=== PATIENT | female | born 1955 | race Caucasian/White ===

== ENCOUNTER → 2017-05-08 | Outpatient (CLI) | payer BC ==
[2014-11-06 14:30] VITALS: BP 126/78
[~2017-05-08] MED LIST: ALPR0.5T PO; HYDR-2762 PO; OLME20TA19 PO
--- NOTE | 2017-05-08 16:03 | KCIC ---
Renal ultrasound with Doppler History: Uncontrolled hypertension. Technique: Sonographic imaging of both kidneys, including color Doppler and duplex analysis. Velocity measurements are in centimeters per second. Findings: Aortic peak systolic velocity: 111 Right renal artery peak systolic velocity: Mid right renal artery not visualized. 84 distally and 117 proximally. Right RI: 0.59-0.80 Left renal artery peak systolic velocity: 116 through 158 Left RI: 0.65 through 0.83 Aorta: Patent, without evidence of aneurysm.. Right kidney measures 8.4 cm. Hyperechoic nodule in the upper pole measures 7 mm. Left kidney measures 10.3 cm. No evidence of hydronephrosis, shadowing calculus or renal lesion. Urinary bladder: Not evaluated. Impression: 1. Renal artery velocities do not suggest a hemodynamically significant stenosis. Consider CT angiography for further evaluation if indicated. 2. Small or atrophic right kidney. 3. Hyperechoic nodule in the upper pole the right kidney. This may represent a small angiomyolipoma. However, recommend further workup, such as with multiphase CT scan MRI scan or follow-up ultrasound. Electronically signed by: Shant Garrett MD (05/08/2017 4:00 PM) [facility]
== END | disposition home or self-care (01) ==
LOC: KCIC US 14:26
PROVIDERS: ATTEND Nurse Practitioner
DX: I10 Essential (primary) hypertension (principal); N26.1 Atrophy of kidney (terminal)
CPT/HCPCS: 93975

== ENCOUNTER → 2017-05-31 | Outpatient (CLI) | payer BC ==
[2014-11-06 14:30] VITALS: BP 126/78
[~2017-05-31] MED LIST changes: +CONTRAST GIVEN MC PRN; +IOHEXOL 300 MG/ML 10ML VIAL. IV ONE
--- NOTE | 2017-05-31 12:16 | KCIC ---
CT Abdomen Without And With Intravenous Contrast History: Right renal nodule. Comparison: Ultrasound renal May 08, 2017. Technique: Initially, noncontrast CT of the abdomen was performed. After intravenous contrast administration, 89 mL Omnipaque-300, repeat CT of the abdomen was performed in early nephrographic phase. Delayed excretory phase CT of the abdomen was also obtained. Axial, sagittal, and coronal reconstructions were obtained. Exposure: One or more of the following individualized dose reduction techniques were utilized for this examination: 1. Automated exposure control 2. Adjustment of the mA and/or kV according to patient size 3. Use of iterative reconstruction technique Findings: Noncontrast images demonstrate no evidence of urinary stone. The right kidney is mildly malrotated with the long axis rotated more laterally than is typical. The right kidney also demonstrates areas of the cortical thinning. The junction of the superior pole and interpolar region of the right kidney demonstrates 6 mm fat-containing lesion, compatible with small angiomyolipoma. Postcontrast images demonstrate no evidence of soft tissue appearing renal mass involving either kidney. Bilateral kidneys enhance and excrete symmetrically. The right hepatic lobe demonstrates subcentimeter low-attenuation lesion, too small to characterize on this examination. Spleen and pancreas are unremarkable. Gallbladder and bilateral adrenal glands are unremarkable. No bowel obstruction is seen. Impression: 1. 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 2. Malrotated and dysmorphic right kidney. Electronically signed by: Shant Machado MD (05/31/2017 12:12 PM) [facility]
== END | disposition home or self-care (01) ==
LOC: KCIC CT 10:31
PROVIDERS: ATTEND Nurse Practitioner
DX: D17.71 Benign lipomatous neoplasm of kidney (principal)
CPT/HCPCS: 74170; Q9967

== ENCOUNTER → 2018-06-24 | Outpatient (CLI) | payer OTHER ==
[2014-11-06 14:30] VITALS: BP 126/78
[~2018-06-24] MED LIST changes: -CONTRAST GIVEN MC PRN; -IOHEXOL 300 MG/ML 10ML VIAL. IV ONE; +OLME20TA17 PO; -OLME20TA19 PO
--- NOTE | 2018-06-24 15:26 | RAD ---
Three-view thoracic spine series Clinical indications: Upper back pain for several years. COMPARISON: None available. FINDINGS: No acute compression fracture is evident. No discitis or osteolytic process is seen. IMPRESSION: No acute compression fracture. Electronically signed by: Yury Smith MD (06/24/2018 3:22 PM) [id number]
== END | disposition home or self-care (01) ==
LOC: RAD 09:26
PROVIDERS: ATTEND Surgery
DX: M54.6 Pain in thoracic spine (principal); I10 Essential (primary) hypertension
CPT/HCPCS: 72072

== ENCOUNTER 2019-08-05 08:19 | Emergency (ER) | payer OTHER ==
[~2019-08-05] VITALS: Ht 170.2 cm; Wt 64.9 kg
[~2019-08-05 08:19] MED LIST changes: -HYDR-2762 PO; +HYDR-2765 PO
[2019-08-05] MEDS ORDERED: FLUORESCEIN OPHTH TEST STRIP. ONE (08:56)
[2019-08-05] MEDS ORDERED: TETRACAINE 0.5% OPHTH SOLUTION 4ML BOTTLE. ONE (08:56)
[2019-08-05] MEDS ORDERED: FLUORESCEIN OPHTH TEST STRIP. OD ONE (09:00)
[2019-08-05] MEDS ORDERED: VALA10005 PO (09:00)
[2019-08-05] MEDS ORDERED: PRED20TA PO (09:00)
[2019-08-05] MEDS ORDERED: oxyCODONE/APAP 5/325 1 TAB TABLET PO ONE (09:00)
[2019-08-05] MEDS ORDERED: OXYC1TAB15 PO (09:00)
--- NOTE | 2019-08-05 09:00 | PHYS DOC ---
Past Medical History Past Medical History: Anxiety, Hypertension, Other Additional Past Medical Histor: CHRONIC BACK PAIN Past Surgical History: Other Additional Past Surgical Histo: ABD SURGERY FROM EGTOPIC Alcohol Use: None Drug Use: None Adult General Chief Complaint Chief Complaint: SKIN PROBLEM HPI HPI Patient is a 64-year-old female who presents to the emergency department for evaluation. She states that she began experiencing pain on her right lip, and just lateral to her right nostril on her face and cheek, on Sunday night. She states that she developed some numbness in this area on the right side of her face, which extended up towards her right lower eyelid. She states the painful rash developed a few days later. The rash extends onto the superior aspect of her right lip, and on the inside of her lip as well as on the soft palate. The rash is confined to the entire right side of her face. She denies any vision changes or ocular pain, headache, or any other painful areas. Palpation of the affected area seems to worsen her pain. There are no alleviating factors to her symptoms. The patient did go to her dentist yesterday. Review of Systems Review of Systems Constitutional: Denies fever or chills [] Eyes: Denies change in visual acuity, redness, or eye pain [] HENT: Denies nasal congestion or sore throat [] Respiratory: Denies cough or shortness of breath [] Cardiovascular: The patient denies any shortness of breath, chest pain, palpitations, or orthopnea [] GI: Denies abdominal pain, nausea, vomiting, bloody stools or diarrhea [] : Denies dysuria or hematuria [] Musculoskeletal: Denies back pain or joint pain [] Integument: Denies rash or skin lesions, other than as noted in the history of present illness [] Neurologic: Denies headache, focal weakness or sensory changes, other than as noted in the history of present illness [] Endocrine: Denies polyuria or polydipsia [] All other systems were reviewed and found to be within normal limits, except as documented in this note. Current Medications Current Medications Current Medications Medications (Trade) Dose Ordered Sig/Anuja Start Time Stop Time Status Last Admin Dose Admin Fluorescein Sodium (Ful-Desirae) 1 strip STK-MED ONCE 08/05/19 08:56 08/05/19 08:56 DC Oxycodone/ Acetaminophen (Percocet 5/325) 1 tab 1X ONCE 08/05/19 09:00 08/05/19 09:01 DC Tetracaine HCl (Tetracaine) 40 drop STK-MED ONCE 08/05/19 08:56 08/05/19 08:56 DC Allergies Allergies Allergies Coded Allergies Type Severity Reaction Last Updated Verified Sulfa (Sulfonamide Antibiotics) Allergy Severe 11/06/14 Yes levofloxacin Adverse Reaction Severe Nausea and Vomiting 08/05/19 Yes Uncoded Allergies Type Severity Reaction Last Updated Verified steroids Adverse Reaction Severe 08/05/19 Physical Exam Physical Exam PHYSICAL EXAM: CONSTITUTIONAL: Well developed, well nourished HEAD: normocephalic, atraumatic EENT: PERRL, EOMI. Conjunctivae normal color, sclerae non-icteric; moist mucous membranes. Fluorescein examination of the right eye is unremarkable. NECK: Supple, non-tender; no meningismus. LUNGS: Lungs CTA, breathing even and unlabored. Normal air movement. HEART: Regular rate and rhythm, no murmur CHEST: No deformity; non-tender ABDOMEN: The abdomen is soft, and non-tender, no masses or bruits. EXTREM: Normal ROM; no deformity, no calf tenderness. Normal pulses palpable in all extremities. There is no pedal edema. SKIN: There is a vesicular rash on an erythematous base on the right upper lip, at the junction of the right side of the nose and the cheek, with a few vesicular lesions noted on the hard and soft palate on the mouth. These are all to the right of midline. There are no lesions across the midline. There are no lower lip lesions. No other rash; no diaphoresis NEURO: Alert; normal speech and cognition; CN's grossly intact; strength grossly intact without focal deficit there is very mild decreased pinprick sensation on the right face relative to the left, without complete anesthesia. BACK: No CVA TTP. PSYCHIATRIC: The patient exhibits a moderately anxious affect. EKG EKG [] Radiology/Procedures Radiology/Procedures [] Course & Med Decision Making Course & Med Decision Making I discussed the diagnosis with the patient, the contagiousness of the wound, the importance of good handwashing and avoid rubbing her eyes, the need for close follow-up and return precautions. I discussed importance of close outpatient follow-up with the patient's blood pressure, which is likely increased at this time due to her anxiety and pain. Dragon Disclaimer Dragon Disclaimer This electronic medical record was generated, in whole or in part, using a voice recognition dictation system. Departure Departure Impression: Primary Impression: Shinglcristobal Disposition: 01 HOME, SELF-CARE Condition: STABLE Referrals: EMILEE STEEL MD (PCP) Patient Instructions: [place] Additional Instructions: The prescribed pain medication may cause drowsiness. Use caution while taking. Avoid touching the wounds, and especially avoid touching her eyes. Good handwashing is important to prevent the spread of this infection. Call your primary care physician Today to arrange a follow-up appointment. Scripts Oxycodone/Apap 5-325 (PERCOCET 5-325 MG TABLET ) 1 Each Tablet 1 TAB PO QIDPRN PRN for PAIN MDD 4 Tablet(s) for 5 Days, #15 TAB 0 Refills Prov: KENNEDY LUI MD 08/05/19 Prednisone (PREDNISONE) 20 Mg Tablet 40 MG PO DAILY for 5 Days, #10 TAB Prov: KENNEDY LUI MD 08/05/19 Valacyclovir Hcl (VALTREX) 1,000 Mg Tablet 1 TAB PO TID, #21 TAB Prov: KENNEDY LUI MD 08/05/19 KENNEDY LUI MD Aug 05, 2019 09:00
[2019-08-05 09:10] VITALS: BP 155/75
== END 2019-08-05 09:28 | disposition home or self-care (01) ==
LOC: ER 08:19
DX: B02.9 Zoster without complications (principal); F41.9 Anxiety disorder, unspecified; I10 Essential (primary) hypertension; G89.29 Other chronic pain; M54.89 Other dorsalgia; Z88.2 Allergy status to sulfonamides; Z88.1 Allergy status to other antibiotic agents
CPT/HCPCS: 99283

== ENCOUNTER → 2019-09-17 | Outpatient (CLI) | payer OTHER ==
[~2019-09-17] MED LIST changes: +ACET500T68 PO; +BACL10TA PO; +OXYC1TAB15 PO; +PRED20TA PO; +VALA10005 PO
--- NOTE | 2019-09-18 04:51 | PAIN ---
DATE OF SERVICE: 09/17/2019 INITIAL CONSULTATION FOR PAIN CLINIC CHIEF COMPLAINT: Right-sided facial pain. HISTORY OF PRESENT ILLNESS: This 64-year-old female presents with history of pain, since shingles outbreak in the right side of the face and the trigeminal distribution. The patient has pictures of her outbreak on her phone, which she shares with us, showing significant lesions on the right side of the face, on the lips, inside the mouth, the cheek as well as on the lateral side of the nares and the infraorbital region on the face itself. No lesions in the eyes or forehead or posterior past the zygomatic arch or into the region of the ear on the right side and no symptoms on the left. The patient reports the pain now still as the rash has resolved significantly. This began on 07/28, is now still painful in the face and it is constant, sharp, throbbing with numbness and tingling in the face and hypersensitivity of the scalp as well as burning and aching on the face and the cheek as well. The patient reports her disability rating from 0-10; 10 being worst, 8 with family home responsibilities, recreation and social activity, 5-8 with occupation, 5-8 with self-care and 10 with life-support activities. The patient also complains of some low back pain, which contributes to the disability rating as well. The patient has had physical therapy for her back in the past and exercise, which she is currently doing. Also, taking oxycodone, which helps significantly by about 70% with the pain. Gabapentin made her quite depressed and had bad side effects. She takes Xanax, which does help too by about 20% and the oxycodone is essentially the only thing that has been decreasing the pain significantly until recently, as the rash resolves and the pain is decreasing to some extent with time, but still fairly significant. PAST MEDICAL HISTORY: Significant for hypertension, irregular heartbeat, arthritis. PREVIOUS SURGERY: Include abdominal surgery x 2 and ectopic in the past. CURRENT MEDICATIONS: Include acetaminophen, baclofen, Percocet and Xanax. ALLERGIES: THE PATIENT IS ALLERGIC TO SULFA, LEVAQUIN AND STEROIDS, WHICH CAUSE HYPERTENSION. FAMILY HISTORY: Significant for no known medical conditions that she is aware of. SOCIAL HISTORY: The patient does not drink alcohol, does not smoke, does not use any illegal, illicit or recreational drugs or substances. Lives with her . Lives locally in [place], [place]. REVIEW OF SYSTEMS: The patient's review of systems is positive for those items mentioned in history of present illness. All systems reviewed and otherwise negative. It is complete, full and well documented on the patient's chart. PHYSICAL EXAMINATION: VITAL SIGNS: The patient's blood pressure is 146/104, pulse 109, respirations 18, temperature is 98.2 degrees Fahrenheit, height is 5 feet 7 inches, weight is 149 pounds. GENERAL: The patient is awake, alert, oriented, appropriate, very pleasant demeanor. The patient is accompanied by her spouse. HEENT: Shows normocephalic, atraumatic. Extraocular movements are intact and symmetrical. Pupils are equal, round, reactive to light and accommodation. Oral cavity shows mucous membranes moist and pink. Dentition is intact. No lesions are demonstrated on the tongue or the buccal mucosa, the right or left side. The patient does report pain with the teeth on the right side from the incisor posteriorly on the upper teeth only. No active rashes noted. There is some slight erythema on the right side of the face, the infraorbital region and lateral to the nares, but only slightly more erythematous in the left side on comparison. The patient's scalp shows atraumatic with some hypersensitivity with direct palpation over the right side of the scalp, not following any dermatomal distribution but on the right side, primarily into parietal and temporal region. No lesions on the ears on the right or left side and appears symmetric and normal in appearance. NECK: Shows throat supple without palpable lymphadenopathy noted. Swallow reflex is symmetrical. Shows good rotational motion of the cervical spine, both laterally, greater than 45 degrees, closer to 90 degrees, right and left as well as full extension, full forward flexion without any exacerbation of pain. CHEST: Shows normal on inspection. Breath sounds are clear bilaterally. HEART: Shows S1, S2 clear. No murmurs auscultated. ABDOMEN: Soft, nontender, nondistended. EXTREMITIES: Upper extremities show deep tendon reflexes 2+ in the biceps and triceps tendons. 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 Peripheral pulses are 2+ radial. No peripheral edema is noted in the upper extremities bilaterally. They are warm and dry to touch, equal in color and appearance. SKIN: The patient's skin shows warm and dry, good turgor. No edema. No sores, rashes or bruises throughout. IMPRESSION: 1. This is a 64-year-old female status post shingles outbreak on the right side of the face in a trigeminal distribution on 07/28, now with residual postherpetic neuralgia in the same distribution on the right side of the face. 2. Arthritis. 3. Hypertension. PLAN: Options were discussed with the patient and her spouse including conservative medical managements as well as interventional techniques. She would like to pursue interventional techniques. We discussed a stellate ganglion block on the right, using description as well as anatomical models to describe the procedure. The patient will wait for preauthorization with her insurance provider. She still has significant postherpetic neuralgia on the right side of the face. We will wait for preauthorization. Once this is obtained, we will proceed with stellate ganglion block on the right with fluoroscopic guidance. In the meantime, the patient was given prescription samples of Lyrica 50 mg to take twice daily and was given instructions as well as potential side effects to be aware of with the medication and will follow up once preauthorization is obtained. Also, note to the patient's primary care physician to continue the oxycodone for the next 4 weeks as this may help the patient significantly decrease the level of pain day to today, while waiting for preauthorization for the stellate ganglion block. I feel this is reasonable as she has not taken this in excess and has no history of abuse or other concerning findings for narcotic prescription for the next 4 weeks only regarding her facial pain. YOSI CID MD DR: RINKU/tamiko JOB#: [id number] / [id number] EMILEE Mcrae MD
== END | disposition home or self-care (01) ==
LOC: PNCL 10:05
PROVIDERS: ATTEND Anesthesiology
DX: B02.29 Other postherpetic nervous system involvement (principal); B02.9 Zoster without complications; R51 Headache; I10 Essential (primary) hypertension; M19.90 Unspecified osteoarthritis, unspecified site
CPT/HCPCS: G0463